=== PATIENT | male | born 1940 | race Caucasian/White ===

== ENCOUNTER → 2024-10-20 | Outpatient (CLI) | payer MEDICARE ==
[2024-10-20 15:25] LABS: Anion Gap 14.0 mmol/L (6-16); Blood Urea Nitrogen 24.0 mg/dL (8-24); CO2, Blood 22.0 mmol/L (21-32); Calcium, Blood 8.9 mg/dL (8.5-10.1); Chloride, Blood 108.0 mmol/L (98-108); Creatinine, Blood 1.08 mg/dL (0.60-1.20); Glucose, Blood 102.0 mg/dL (70-99); Potassium, Blood 4.4 mmol/L (3.5-5.5); Sodium, Blood 140.0 mmol/L (136-145)
== END ==
LOC: LAB SHORT 15:12 → LAB 15:12
PROVIDERS: Family Medicine
DX: R31.9 Hematuria, unspecified (principal)
CPT/HCPCS: 80048

== ENCOUNTER → 2024-10-20 | Outpatient (CLI) | payer MEDICARE | LOC: LAB SHORT 16:49 → LAB 16:49 | DX: R31.9 Hematuria, unspecified (principal) | CPT/HCPCS: 87086 ==